=== PATIENT | male | born 1965 | race Caucasian/White ===

== ENCOUNTER 2016-09-19 18:47 | Emergency (ER) | payer SELFPAY ==
[~2016-09-19] VITALS: Ht 175.3 cm; Wt 63.4 kg
[~2016-09-19 18:47] MED LIST: NO HOME MEDS
[2016-09-19] MEDS ORDERED: LURA20TA PO (19:34)
[2016-09-19] MEDS ORDERED: MAGNESIUM SULFATE 1GM VIAL 2 GM, THIAMINE INJ 100 MG, MULTIVITAMIN INJ 10 ML in D5LR 1,... IV SCH (19:55)
[2016-09-19] MEDS ORDERED: THIAMINE 100 MG/ML (VITAMIN B1) 2 ML VIAL ONE (20:04)
[2016-09-19] MEDS ORDERED: MAGNESIUM SULFATE 1 GM/2 ML VIAL ONE (20:04)
[2016-09-19] MEDS ORDERED: MULTIVITAMINS (MVI) 2 5 ML VIALS IV ONE (20:04)
[2016-09-19 20:08] LABS: BASOPHILS % (AUTO) 1 % (0-2); EOSINOPHILS # (AUTO) 0.1 10^3uL; EOSINOPHILS % (AUTO) 2 % (0-4); LYMPHOCYTES # (AUTO) 1.7 X10^3; MEAN CORPUSCULAR HEMOGLOBIN 30.9 PG (26.0-34.0); MEAN CORPUSCULAR HGB CONC 34.6 g/dL (31.0-37.0); MEAN CORPUSCULAR VOLUME 89 FL (80-100); MEAN PLATELET VOLUME 9.2 FL (6.0-9.5); MONOCYTES # (AUTO) 0.7 X10^3; MONOCYTES % (AUTO) 12 % (3-11); NEUTROPHILS % (AUTO) 55 % (51-67); PLATELET COUNT 186 10^3uL (150-450); WHITE BLOOD COUNT 5.48 10^3uL (4.0-11.0)
[2016-09-19 20:16] LABS: BILIRUBIN,URINE Negative (Negative); CLARITY,URINE Clear; COLOR,URINE Yellow; GLUCOSE, URINE (UA) Negative (Negative); LEUKOCYTE ESTERASE ,URINE Negative (Negative); PH,URINE 6.5 (5.0 - 8.0); UROBILINOGEN,URINE 0.2 mg/dL (0.2-1.0)
[2016-09-19 20:20] LABS: ALBUMIN 4.5 g/dL (3.4-5.0); ANION GAP 22.9 MEQ/L (3-15); CALCULATED IONIZED CALCIUM 3.8 mg/dL (3.8-4.6); TOTAL PROTEIN 7.9 g/dL (6.4-8.5)
[2016-09-19 20:23] LABS: AMPHETAMINE SCREEN, URINE Negative (Negative); CANNABINOID SCREEN, URINE Negative (Negative); METHAMPHETAMINE SCREEN URINE S NEGATIVE (NEGATIVE)
[2016-09-19 20:24] LABS: OPIATE SCREEN URINE Negative (Negative); PROPOXYPHENE STAT NEGATIVE (NEGATIVE)
--- NOTE | 2016-09-19 22:20 | NUR ---
Spoke with pt's on the phone. States she is not able to order picker/assembler pt d/t no money for gas. Pt notified.
--- NOTE | 2016-09-19 22:30 | NUR ---
Pt had discontinued IV. Blood all over the room. Dressing applied to IV site with coban.
--- NOTE | 2016-09-19 22:40 | NUR ---
Pt come out of his room and had pulled out his IV, pt was holding pressure, pt put back in his room and his iv site bandaged properly.
--- NOTE | 2016-09-19 22:50 | NUR ---
Pt was found smoking in the ED room by Jihan BLACK, pt states that he does not have a ride home, there is no taxi. Pt keeps coming out to the desk, pt taken back to his room
--- NOTE | 2016-09-19 23:00 | NUR ---
Pt states that he was dropped off by his , she is in [place], Jihan BLACK did call the she cannot come and get pt, pt states that he has friends here in [place] and he will find them. Pt is steady on his feet walking around in ED
[2016-09-19 23:39] VITALS: BP 149/102
== END 2016-09-19 23:10 | disposition home or self-care (01) ==
LOC: ED 18:48
DX: F10.129 Alcohol abuse with intoxication, unspecified (principal); Y90.8 Blood alcohol level of 240 mg/100 ml or more; F17.210 Nicotine dependence, cigarettes, uncomplicated
CPT/HCPCS: 36415; 80053; 80307; 80320; 81003; 85025; 96365; 96366; 99283; J3411; J3475; 99282